=== PATIENT | female | born 1985 | race Caucasian/White ===

== ENCOUNTER 2022-10-28 17:48 | Emergency (ER) | payer BC, SELFPAY ==
[2022-10-28 17:49] VITALS: BP 141/86; PULSE 87; RESP 19; TEMP 36.7; O2SAT 99; BMI 50.1
[2022-10-28 18:21] LABS: UTC Strep Screen (Rapid) Negative (Negative)
--- NOTE | 2022-10-28 18:31 | EXP.UTC ---
Discharge Plan Disposition Patient Disposition: Home, Self-Care Condition: Good Prescriptions Prescriptions: New azithromycin [Zithromax Z-Jose] 250 mg tablet See Rx Instructions .ROUTE .COMPLEX 5 Days Qty: 6 0RF Rx Instructions: For 250 mg dose pack: take 500 mg today (day 1), then 250 mg for 4 days (days 2-5) benzonatate 100 mg capsule 100 mg PO TID PRN (Reason: cough) Qty: 30 0RF Referrals Follow up/Referrals: Yamileth Sargent [Primary Care Provider] - See instructions Activity Restrictions/Add. Instructions Additional Instructions/Restrictions: *Monitor Temp, Over the counter Motrin or Tylenol as directed/as needed Tylenol every 4 hours and Motrin every 6 hours (as long as your family doctor has told you that you can take it) for fever or pain. and straight to ER if unable to lower temp less than 101.0 after medication given *Warm salt water gargles may help to soothe the throat *Throat Lozenges? *Warm fluids like tea with honey may help to soothe the throat? *Sleep elevated *Humidifier/Vaporizer Follow up IMMEDIATELY for new or worsening symptoms or no Noticeable improvement over the next 48-72 hours. 911 for difficulty breathing or swallowing Clinical Impressions Clinical Impression: Sinusitis Qualifiers: Sinusitis location: unspecified location Chronicity: unspecified Qualified Code(s): J32.9 - Chronic sinusitis, unspecified Instructions Patient Instructions: Sinusitis, DI for Sinusitis Discharge ED Provider: Shannen Celestin [facility] General Stated complaint: sore throat, blisters in mouth Mode of Arrival: Ambulatory Source of Information: Patient Limitations: No Limitations Time Seen by Provider: 10/28/22 18:31 Description of Symptoms (Recalled from Triage Doc. by RN): Patient complaint of cough, sore throat, fatigue, no appetite, and dizzy moments x 2 days. HEENT Symptoms (Recalled from RN notes): Yes Resp Symptoms (Recalled from RN notes): No Skin Symptoms (Recalled from RN notes): No MS Symptoms (Recalled from RN notes): No Functional Status (Recalled from RN notes): wnl History of Present Illness Provider Complaint: Patient states that she has been having sinus congestion and pressure for several days States that for the last couple of days she has been having sore throat, blisters on her throat, sinus pressure, drainage in the back of her throat fatigue and loss of appetite States that today she wasnt feeling any better and could barely talk so she came in Related Data Previous Rx's Medication Instructions Recorded azithromycin 250 mg tablet See Rx Instructions PO .COMPLEX 5 10/28/22 (Zithromax Z-Jose) days #6 tabs benzonatate 100 mg capsule 100 mg PO TID PRN cough #30 caps 10/28/22 Allergies Allergy/AdvReac Type Severity Reaction Status Date / Time No Known Allergies Allergy Verified 10/28/22 18:14 Worker's Comp Is this a Worker's Comp case?: No [facility] Disclaimer: The information contained in this section may have been updated after the patient was seen, as this information can be updated by other users. Social History Smoking Status: Unknown if ever smoked alcohol intake: never current occupational status: employed Travel in the last 8 weeks: None ROS Obtained: Yes All systems reviewed & no additional complaints except as documented Constitutional Constitutional: Reports system reviewed and no additional complaints, except as documented, Reports as per HPI, Reports fever(s) and Reports headache(s) ENT Ears, Nose, Mouth, and Throat: Reports system reviewed and no additional complaints, except as documented, Reports as per HPI, Reports headache(s), Reports nasal congestion, Reports sinus pressure and Reports sore throat Cardiovascular Cardiovascular: Reports system reviewed and no additional complaints, except as documented and Reports as per HPI Respiratory Respiratory: Reports system reviewed and no additional com
[2022-10-28 19:10] VITALS: BP 141/86; PULSE 87; RESP 19; TEMP 36.7; O2SAT 99
== END 2022-10-28 19:11 | disposition home or self-care (01) ==
PROVIDERS: Emergency Provider Nurse Practitioner; PCP Family Medicine
DX: J01.90 Acute sinusitis, unspecified (principal); R53.83 Other fatigue; R05.9 Cough, unspecified
CPT/HCPCS: 87880; 96372; 99204; 99212; G0463

== ENCOUNTER 2022-12-22 17:11 | Emergency (ER) | payer BC, SELFPAY ==
[2022-12-22 17:15] VITALS: BP 164/93; PULSE 83; RESP 18; TEMP 36.8; O2SAT 95; BMI 49.7
[2022-12-22 17:34] LABS: Apearance,Urine Clear (Clear); Blood, Urine Negative (Negative); Color,Urine Orange (Yellow); Glucose,Urine (UA) 1+ (Negative); Ketones,Urine Negative (Negative); Protein,Urine 3+ (Negative)
--- NOTE | 2022-12-22 17:34 | EXP.UTC ---
Discharge Plan Disposition Patient Disposition: Home, Self-Care Condition: Good Prescriptions Prescriptions: New phenazopyridine [Pyridium] 200 mg tablet 200 mg PO Q8H 2 Days Qty: 6 0RF ondansetron 4 mg Tablet,Disintegrating 4 mg PO Q8H PRN (Reason: Nausea) Qty: 12 0RF nitrofurantoin monohyd/m-cryst [Macrobid] 100 mg Capsule 100 mg PO BID Qty: 10 0RF Rx Instructions: must administer with a meal/food No Action diltiazem HCl 180 mg capsule,extended release 24hr 180 mg PO DAILY Patient Comments: TAKE ONE (1) CAPSULE BY MOUTH EVERY DAY omeprazole 40 mg capsule,delayed release(DR/EC) 40 mg PO DAILY Patient Comments: TAKE ONE (1) CAPSULE EVERY DAY BY ORAL ROUTE FOR 30 DAYS. meloxicam 7.5 mg tablet 7.5 mg PO BID Patient Comments: TAKE ONE (1) TABLET TWICE A DAY BY ORAL ROUTE FOR 30 DAYS. dextroamphetamine-amphetamine [Adderall XR] 15 mg capsule,extended release 24hr 15 mg PO BID Patient Comments: TAKE ONE (1) CAPSULE TWICE A DAY BY ORAL ROUTE DIRECTED FOR 30 DAYS. duloxetine 60 mg capsule,delayed release(DR/EC) 60 mg PO DAILY Patient Comments: TAKE ONE (1) CAPSULE EVERY DAY BY ORAL ROUTE AT BEDTIME FOR 90 DAYS. Mounjaro 2.5 mg/0.5 mL pen injector See Rx Instructions .ROUTE .COMPLEX Patient Comments: INJECT TWO AND A HALF (2 & 1/2) MG WEEKLY Rx Instructions: INJECT TWO AND A HALF (2 & 1/2) MG WEEKLY Referrals Follow up/Referrals: Yamileth Sargent [Primary Care Provider] - See instructions Activity Restrictions/Add. Instructions Additional Instructions/Restrictions: Drink plenty of fluids. Take tylenol or ibuprofen for pain or fever. Take the medications as directed. Follow up with your regular doctor. GO TO THE ER FOR ANY WORSENING SYMPTOMS The pyridium will make your urine turn orange, this is an expected side effect. It will stain your clothes if it comes into contact with them. We will culture the urine. That will tell what bacteria is causing your infection and which antibiotics will treat it best. Sometimes the first antibiotic we prescribe turns out to not work against different bacteria. So, make sure you follow up within 3 days if you are not getting better. Clinical Impressions Clinical Impression: UTI (urinary tract infection) Stand Alone Forms Stand Alone Forms: Work/School Release Instructions Patient Instructions: DI for Urinary Tract Infection (UTI), Urine Culture, Phenazopyridine Discharge ED Provider: Douglas De La Cruz [facility] [place] HPI General Stated complaint: painful urination Mode of Arrival: Ambulatory Source of Information: Patient Limitations: No Limitations Time Seen by Provider: 12/22/22 17:34 Description of Symptoms (Recalled from Triage Doc. by RN): painful to urinate, sharp cramps in lower abdomen, nausea, and no appetite HEENT Symptoms (Recalled from RN notes): No Resp Symptoms (Recalled from RN notes): No Skin Symptoms (Recalled from RN notes): No MS Symptoms (Recalled from RN notes): No Functional Status (Recalled from RN notes): n/a History of Present Illness Provider Complaint: She states that she has had dysuria, low back pain, and urinary frequency. Related Data Home Medications Medication Instructions Recorded Confirmed dextroamphetamine-amphetamine ER 15 mg PO BID adhd 12/22/22 12/22/22 15 mg 24hr capsule,extend release (Adderall XR) diltiazem HCl 180 mg 180 mg PO DAILY 12/22/22 12/22/22 capsule,extended release 24 hr duloxetine 60 mg capsule,delayed 60 mg PO DAILY 12/22/22 12/22/22 release meloxicam 7.5 mg tablet 7.5 mg PO BID 12/22/22 12/22/22 omeprazole 40 mg capsule,delayed 40 mg PO DAILY 12/22/22 12/22/22 release tirzepatide 2.5 mg/0.5 mL See Rx Instructions .Route .COMPLEX 12/22/22 12/22/22 subcutaneous pen injector (Jose Maria) Previous Rx's Medication Instructions Recorded nitrofurantoin 100 mg PO BID #10 caps
[2022-12-22 17:35] LABS: Bilirubin,Urine 1+ (Negative); UTC Leukocyte Esterase,Urine Negative (Negative); UTC Nitrate,Urine Positive (Negative); Urobilinogen,Urine 1 EU/dl (0.2)
[2022-12-22 18:11] VITALS: BP 164/93; PULSE 83; RESP 18; TEMP 36.8; O2SAT 95
== END 2022-12-22 18:10 | disposition home or self-care (01) ==
PROVIDERS: Emergency Provider Nurse Practitioner Family; PCP Family Medicine
DX: N39.0 Urinary tract infection, site not specified (principal); M54.59 Other low back pain; R11.0 Nausea
CPT/HCPCS: 81003; 87086; 99212; 99214; G0463

== ENCOUNTER 2023-01-23 14:18 | Emergency (ER) | payer BC, SELFPAY ==
[2023-01-23 14:18] VITALS: BP 121/84; PULSE 75; RESP 18; O2SAT 100; BMI 49.7
--- NOTE | 2023-01-23 15:46 | PC.NURSE ---
Pt ambulatory to bathroom and back to bed
--- NOTE | 2023-01-23 15:48 | HMH.EDGENADL ---
Discharge Plan Disposition Patient Disposition: Home, Self-Care Prescriptions Prescriptions: No Action diltiazem HCl 180 mg capsule,extended release 24hr 180 mg PO DAILY Patient Comments: TAKE ONE (1) CAPSULE BY MOUTH EVERY DAY omeprazole 40 mg capsule,delayed release(DR/EC) 40 mg PO DAILY Patient Comments: TAKE ONE (1) CAPSULE EVERY DAY BY ORAL ROUTE FOR 30 DAYS. meloxicam 7.5 mg tablet 7.5 mg PO BID Patient Comments: TAKE ONE (1) TABLET TWICE A DAY BY ORAL ROUTE FOR 30 DAYS. dextroamphetamine-amphetamine [Adderall XR] 15 mg capsule,extended release 24hr 15 mg PO BID Patient Comments: TAKE ONE (1) CAPSULE TWICE A DAY BY ORAL ROUTE DIRECTED FOR 30 DAYS. duloxetine 60 mg capsule,delayed release(DR/EC) 60 mg PO DAILY Patient Comments: TAKE ONE (1) CAPSULE EVERY DAY BY ORAL ROUTE AT BEDTIME FOR 90 DAYS. Mounjaro 2.5 mg/0.5 mL pen injector See Rx Instructions .ROUTE .COMPLEX Patient Comments: INJECT TWO AND A HALF (2 & 1/2) MG WEEKLY Rx Instructions: INJECT TWO AND A HALF (2 & 1/2) MG WEEKLY phenazopyridine [Pyridium] 200 mg tablet 200 mg PO Q8H 2 Days Qty: 6 0RF ondansetron 4 mg Tablet,Disintegrating 4 mg PO Q8H PRN (Reason: Nausea) Qty: 12 0RF nitrofurantoin monohyd/m-cryst [Macrobid] 100 mg Capsule 100 mg PO BID Qty: 10 0RF Rx Instructions: must administer with a meal/food Referrals Follow up/Referrals: Yamileth Sargent [Primary Care Provider] - See instructions Activity Restrictions/Add. Instructions Additional Instructions/Restrictions: Please follow-up with your primary care provider. Please return to the emergency department if you develop any new or worsening symptoms or become concerned for your health. Clinical Impressions Clinical Impression: Migraine Qualifiers: Migraine type: unspecified Intractability: not intractable Discharge ED Provider: Abdoul King Adult HPI General Chief complaint: Headache Stated complaint: JARQUIN Time Seen by Provider: 01/23/23 15:00 Mode of Arrival: EMS Source of Information: Patient and EMS Limitations: No Limitations Description of Symptoms (Recalled from ER Triage Doc. by RN): c/o sweating, dizzy, headache, light sensitivity, nausea that occurred prior to arrival, hx of migraine and states that this feels similiar. Jose Maria shot started one month ago, takes this shot once a week with this week shot taken today. Pt states that she usually drinks caffeine daily, she did have some coffee this morning but not her usual intake. History of Present Illness HPI narrative: 37-year-old female, history of chronic migraines presents with migraine headache. She reports headache started this morning, worsened throughout the day. Shortly prior to arrival she became dizzy and started sweating. She reports her symptoms are consistent with prior migraines including frontal headache, blurry vision, photo and phonophobia. Related Data Home Medications Medication Instructions Recorded Confirmed dextroamphetamine-amphetamine ER 15 mg PO BID adhd 12/22/22 12/22/22 15 mg 24hr capsule,extend release (Adderall XR) diltiazem HCl 180 mg 180 mg PO DAILY 12/22/22 12/22/22 capsule,extended release 24 hr duloxetine 60 mg capsule,delayed 60 mg PO DAILY 12/22/22 12/22/22 release meloxicam 7.5 mg tablet 7.5 mg PO BID 12/22/22 12/22/22 omeprazole 40 mg capsule,delayed 40 mg PO DAILY 12/22/22 12/22/22 release tirzepatide 2.5 mg/0.5 mL See Rx Instructions .Route .COMPLEX 12/22/22 12/22/22 subcutaneous pen injector (Mounjaro) Previous Rx's Medication Instructions Recorded nitrofurantoin 100 mg PO BID #10 caps 12/22/22 monohydrate/macrocrystals 100 mg capsule (Macrobid) ondansetron 4 mg disintegrating 4 mg PO Q8H PRN Nausea #12 tabs 12/22/22 tablet phenazopyridine 200 mg tablet 200 mg PO Q8H 2 days #6 tabs 12/22/22 (Pyridium) Allergies Allergy
--- NOTE | 2023-01-23 17:41 | PC.NURSE ---
Pt advised she is feeling so much better Dr. King updated
[2023-01-23 17:45] VITALS: BP 144/88; PULSE 72; RESP 18; TEMP 36.7; O2SAT 97
[2023-01-23 17:46] VITALS: BP 110/72; PULSE 68; RESP 16; TEMP 36.7; O2SAT 98
== END 2023-01-23 17:45 | disposition home or self-care (01) ==
PROVIDERS: Emergency Provider Emergency Medicine; PCP Family Medicine
DX: G43.909 Migraine, unspecified, not intractable, without status migrainosus (principal); R42 Dizziness and giddiness; H53.8 Other visual disturbances; R11.0 Nausea
CPT/HCPCS: 96361; 96374; 96375; 99284

== ENCOUNTER 2023-02-16 17:31 | Emergency (ER) | payer BC, SELFPAY ==
[2023-02-16 18:10] VITALS: BP 159/89; PULSE 87; RESP 18; TEMP 36.8; O2SAT 97; BMI 50.8
--- NOTE | 2023-02-16 18:32 | ED_ITS ---
Discharge Plan Disposition Patient Disposition: Home, Self-Care Condition: Good Prescriptions Prescriptions: New benzonatate [benzonatate] 100 mg capsule 100 mg PO TIDP PRN (Reason: Cough) Qty: 30 0RF methylprednisolone 4 mg Tablets,Dose Pack 4 mg PO DIRECTED 6 Days Qty: 21 0RF Rx Instructions: Take 1 pack as directed for 6 days amoxicillin-pot clavulanate 875-125 mg Tablet 1 tab PO Q12H Qty: 20 0RF No Action diltiazem HCl 180 mg capsule,extended release 24hr 180 mg PO DAILY Patient Comments: TAKE ONE (1) CAPSULE BY MOUTH EVERY DAY omeprazole 40 mg capsule,delayed release(DR/EC) 40 mg PO DAILY Patient Comments: TAKE ONE (1) CAPSULE EVERY DAY BY ORAL ROUTE FOR 30 DAYS. meloxicam 7.5 mg tablet 7.5 mg PO BID Patient Comments: TAKE ONE (1) TABLET TWICE A DAY BY ORAL ROUTE FOR 30 DAYS. dextroamphetamine-amphetamine [Adderall XR] 15 mg capsule,extended release 24hr 15 mg PO BID Patient Comments: TAKE ONE (1) CAPSULE TWICE A DAY BY ORAL ROUTE DIRECTED FOR 30 DAYS. duloxetine 60 mg capsule,delayed release(DR/EC) 60 mg PO DAILY Patient Comments: TAKE ONE (1) CAPSULE EVERY DAY BY ORAL ROUTE AT BEDTIME FOR 90 DAYS. Mounjaro 2.5 mg/0.5 mL pen injector See Rx Instructions .ROUTE .COMPLEX Patient Comments: INJECT TWO AND A HALF (2 & 1/2) MG WEEKLY Rx Instructions: INJECT TWO AND A HALF (2 & 1/2) MG WEEKLY ondansetron 4 mg Tablet,Disintegrating 4 mg PO Q8H PRN (Reason: Nausea) Qty: 12 0RF nitrofurantoin monohyd/m-cryst [Macrobid] 100 mg Capsule 100 mg PO BID Qty: 10 0RF Rx Instructions: must administer with a meal/food Referrals Follow up/Referrals: Yamileth Sargent [Primary Care Provider] - See instructions Activity Restrictions/Add. Instructions Additional Instructions/Restrictions: Drink plenty of fluids. Take tylenol or ibuprofen for pain or fever. Take the medications as directed. Follow up with your regular doctor. GO TO THE ER FOR ANY WORSENING SYMPTOMS Clinical Impressions Clinical Impression: Pharyngitis, Sinusitis, Acute bronchitis Stand Alone Forms Stand Alone Forms: Work/School Release Instructions Patient Instructions: DI for Pharyngitis/Tonsillopharyngitis -- Adult, DI for Acute Bronchitis, Dexamethasone Injection Discharge ED Provider: Douglas De La Cruz [facility] [facility] [place] General Stated complaint: cough, sore throat, Time Seen by Provider: 02/16/23 18:32 History of Present Illness Provider Complaint: She states that she has had a sore throat, cough and sinus congestion for the past 2 weeks. She states that her symptoms are getting worse. Related Data Home Medications Medication Instructions Recorded Confirmed dextroamphetamine-amphetamine ER 15 mg PO BID adhd 12/22/22 12/22/22 15 mg 24hr capsule,extend release (Adderall XR) diltiazem HCl 180 mg 180 mg PO DAILY 12/22/22 12/22/22 capsule,extended release 24 hr duloxetine 60 mg capsule,delayed 60 mg PO DAILY 12/22/22 12/22/22 release meloxicam 7.5 mg tablet 7.5 mg PO BID 12/22/22 12/22/22 omeprazole 40 mg capsule,delayed 40 mg PO DAILY 12/22/22 12/22/22 release tirzepatide 2.5 mg/0.5 mL See Rx Instructions .Route .COMPLEX 12/22/22 12/22/22 subcutaneous pen injector (Jose Maria) Previous Rx's Medication Instructions Recorded nitrofurantoin 100 mg PO BID #10 caps 12/22/22 monohydrate/macrocrystals 100 mg capsule (Macrobid) ondansetron 4 mg disintegrating 4 mg PO Q8H PRN Nausea #12 tabs 12/22/22 tablet amoxicillin 875 mg-potassium 1 tab PO Q12H #20 tabs 02/16/23 clavulanate 125 mg tablet benzonatate 100 mg capsule 100 mg PO TIDP PRN Cough #30 caps 02/16/23 methylprednisolone 4 mg tablets in 4 mg PO DIRECTED 6 days #21 tabs 02/16/23 a dose pack Allergies Allergy/AdvReac Type Severity Reaction Status Date / Time No Known Allergies Allergy Verified 02/16/23 18:38 [facility] Disclaimer: The information contained in this section may have been updated after the pat ient was seen, as this information can be updated by other users. Social History Smoking Status: Never smoker alcohol intake: never current occupational status: employed Travel in the last 8 weeks: None ROS Obtained: Yes All systems reviewed & no additional complaints except as documented Constitutional Constitutional: Reports as per HPI, Reports chills and Denies fever(s) Eyes Eyes: Denies eye discharge ENT Ears, Nose, Mouth, and Throat: Reports as per HPI Cardiovascular Cardiovascular: Denies chest pain Respiratory Respiratory: Denies chest congestion and Reports cough Gastrointestinal Gastrointestingal: Reports nausea; Denies abdominal pain, constipation, cramping, diarrhea or vomiting Musculoskeletal Musculoskeletal: Denies arthralgias Integumentary/Breasts Skin/Breast: Denies rash Neurologic Neurologic: Denies paresthesias Physical Exam General General appearance: alert and in no apparent distress Head Head exam: atraumatic, normocephalic and normal inspection Eye Eye exam: Present normal appearance, PERRL and EOMI ENT ENT exam: Present mucous membranes moist and normal external ear exam Expanded ENT Exam TM/Canal exam: Bilateral TM: erythema and bulging Nose exam: Absent sinus tenderness Mouth exam: Present normal external inspection; Absent drooling Teeth exam: Present normal inspection Throat exam: Present tonsillar erythema, tonsillomegaly and tonsillar exudate Neck Neck exam: Present normal inspection, full ROM and trachea midline; Absent te nderness, meningismus or lymphadenopathy Chest Chest inspection: Present normal inspection and symmetric chest wall rise; Absent tenderness Respiratory Respiratory exam: Present normal lung sounds bilaterally; Absent respiratory distress, wheezes or stridor Cardiovascular Cardiovascular exam: Present regular rate and normal rhythm; Absent systolic murmur or diastolic murmur Abdominal Exam Abdominal exam: Present soft and normal bowel sounds; Absent distention, tenderness, guarding, rebound or rigidity Extremities Exam Extremities exam: Present normal inspection and normal capillary refill; Absent calf tenderness Back Exam Back exam: Present normal inspection and full ROM; Absent tenderness, CVA te nderness (R) or CVA tenderness (L) Neurological Exam Neurological exam: Present alert, oriented X3 and CN II-XII intact Psychiatric Psychiatric exam: Present normal affect and normal mood Skin Skin exam: Present warm, dry, intact and normal color Medical Decision Making Medical Records Medical records reviewed: No I reviewed the patient's medical records. Deep Inquiry Pt receiving controlled substance: No Lab Data Lab results reviewed: Yes I reviewed the patient's lab results.
[2023-02-16 18:45] LABS: UTC Strep Screen (Rapid) Negative (Negative)
[2023-02-16] MEDS: DEXAMETHASONE 4MG/ML 1ML VIAL 8 MG IM (18:56)
[2023-02-16 19:10] VITALS: BP 159/89; PULSE 87; RESP 18; TEMP 36.8; O2SAT 97
== END 2023-02-16 19:10 | disposition home or self-care (01) ==
PROVIDERS: Emergency Provider Nurse Practitioner Family; PCP Family Medicine
DX: J20.9 Acute bronchitis, unspecified (principal); J02.9 Acute pharyngitis, unspecified; J01.90 Acute sinusitis, unspecified
CPT/HCPCS: 87880; 96372; 99212; 99214; G0463

== ENCOUNTER 2023-03-01 18:28 | Emergency (ER) | payer BC, SELFPAY ==
--- NOTE | 2023-03-01 18:35 | XR_ITS ---
PROCEDURE INFORMATION: Exam: XR Left Hand Exam date and time: 03/01/2023 6:41 PM Age: 37 years old Clinical indication: Finger(s); Left; Patient HX: C/O thumb pain distal phalanx; Additional info: Hit hand on counter TECHNIQUE: Imaging protocol: Radiologic exam of the left hand. Views: 3 or more views. COMPARISON: No relevant prior studies available. FINDINGS: Bones/joints: No acute fracture or malalignment. Soft tissues: Normal. IMPRESSION: No acute osseous findings.
[2023-03-01 19:15] VITALS: BP 119/84; PULSE 94; RESP 17; TEMP 37.1; O2SAT 98; BMI 46.1
--- NOTE | 2023-03-01 19:36 | EXP.UTC ---
Discharge Plan Disposition Patient Disposition: Home, Self-Care Condition: Good Prescriptions Prescriptions: New cephalexin 500 mg capsule 500 mg PO QID Qty: 40 0RF mupirocin 2 % ointment 1 applic topical TID 7 Days Qty: 15 0RF No Action benzonatate [benzonatate] 100 mg capsule 100 mg PO TIDP PRN (Reason: Cough) Qty: 30 0RF methylprednisolone 4 mg Tablets,Dose Pack 4 mg PO DIRECTED 6 Days Qty: 21 0RF Rx Instructions: Take 1 pack as directed for 6 days amoxicillin-pot clavulanate 875-125 mg Tablet 1 tab PO Q12H Qty: 20 0RF albuterol sulfate [Ventolin HFA] 90 mcg/actuation HFA aerosol inhaler 2 puff inhalation Q6H PRN (Reason: shortness of breath or wheezing) Qty: 6.7 0RF diltiazem HCl 180 mg capsule,extended release 24hr 180 mg PO DAILY Patient Comments: TAKE ONE (1) CAPSULE BY MOUTH EVERY DAY omeprazole 40 mg capsule,delayed release(DR/EC) 40 mg PO DAILY Patient Comments: TAKE ONE (1) CAPSULE EVERY DAY BY ORAL ROUTE FOR 30 DAYS. meloxicam 7.5 mg tablet 7.5 mg PO BID Patient Comments: TAKE ONE (1) TABLET TWICE A DAY BY ORAL ROUTE FOR 30 DAYS. dextroamphetamine-amphetamine [Adderall XR] 15 mg capsule,extended release 24hr 15 mg PO BID Patient Comments: TAKE ONE (1) CAPSULE TWICE A DAY BY ORAL ROUTE DIRECTED FOR 30 DAYS. duloxetine 60 mg capsule,delayed release(DR/EC) 60 mg PO DAILY Patient Comments: TAKE ONE (1) CAPSULE EVERY DAY BY ORAL ROUTE AT BEDTIME FOR 90 DAYS. Mounjaro 2.5 mg/0.5 mL pen injector See Rx Instructions .ROUTE .COMPLEX Patient Comments: INJECT TWO AND A HALF (2 & 1/2) MG WEEKLY Rx Instructions: INJECT TWO AND A HALF (2 & 1/2) MG WEEKLY ondansetron 4 mg Tablet,Disintegrating 4 mg PO Q8H PRN (Reason: Nausea) Qty: 12 0RF nitrofurantoin monohyd/m-cryst [Macrobid] 100 mg Capsule 100 mg PO BID Qty: 10 0RF Rx Instructions: must administer with a meal/food Referrals Follow up/Referrals: Yamileth Sargent [Primary Care Provider] - See instructions Activity Restrictions/Add. Instructions Additional Instructions/Restrictions: Rest the extremity, Elevate the extremity as tolerated while you are resting. Take the medication as directed and apply the topical antibiotic ointment as directed. Follow up with your regular doctor. GO TO THE ER FOR ANY WORSENING SYMPTOMS Clinical Impressions Clinical Impression: Open wound of left thumb with damage to nail, Cellulitis of left thumb Instructions Patient Instructions: Cellulitis, DI for Nail Bed Injury Discharge ED Provider: Douglas De La Cruz [facility] [place] General Stated complaint: AO01/ LT thumb inj Time Seen by Provider: 03/01/23 19:36 History of Present Illness Provider Complaint: She states that around 1 week ago she accidentally got her left thumb nail hung on the edge of a table. This caused her to get an injury to the nail base. She states that since then she has had redness and drainage from the base of the nail. She denies any other injury. Related Data Home Medications Medication Instructions Recorded Confirmed dextroamphetamine-amphetamine ER 15 mg PO BID adhd 12/22/22 12/22/22 15 mg 24hr capsule,extend release (Adderall XR) diltiazem HCl 180 mg 180 mg PO DAILY 12/22/22 12/22/22 capsule,extended release 24 hr duloxetine 60 mg capsule,delayed 60 mg PO DAILY 12/22/22 12/22/22 release meloxicam 7.5 mg tablet 7.5 mg PO BID 12/22/22 12/22/22 omeprazole 40 mg capsule,delayed 40 mg PO DAILY 12/22/22 12/22/22 release tirzepatide 2.5 mg/0.5 mL See Rx Instructions .Route .COMPLEX 12/22/22 12/22/22 subcutaneous pen injector (Jose Maria) Previous Rx's Medication Instructions Recorded nitrofurantoin 100 mg PO BID #10 caps 12/22/22 monohydrate/macrocrystals 100 mg capsule (Macrobid) ondansetron 4 mg disintegrating 4 mg PO Q8H PRN Nausea #12 tabs 12/22/22 tablet albuterol sulfate 90 mcg/actuation 2 puff inhalation Q6H PRN 02/16/23 aerosol inhaler (Ventolin HFA) shortness of breath or wheezing #6.7 grams amoxicillin 875 mg-potassium 1 tab PO Q12H #20 tabs 02/16/23 clavulanate 125 mg tablet benzonatate 100 mg capsule 100 mg PO TIDP PRN Cough #30 caps 02/16/23 methylprednisolone 4 mg tablets in 4 mg PO DIRECTED 6 days #21 tabs 02/16/23 a dose pack cephalexin 500 mg capsule 500 mg PO QID #40 caps 03/01/23 mupirocin 2 % topical ointment 1 applic topical TID 7 days #15 03/01/23 grams Allergies Allergy/AdvReac Type Severity Reaction Status Date / Time No Known Allergies Allergy Verified 03/01/23 20:03 [facility] Disclaimer: The information contained in this section may have been updated after the patient was seen, as this information can be updated by other users. Social History Smoking Status: Never smoker alcohol intake: never current occupational status: employed Travel in the last 8 weeks: None ROS Obtained: Yes All systems reviewed & no additional complaints except as documented Constitutional Constitutional: Denies chills and Denies fever(s) Eyes Eyes: Denies eye discharge ENT Ears, Nose, Mouth, and Throat: Denies dizziness, Denies otalgia and Denies sore throat Cardiovascular Cardiovascular: Denies chest pain Respiratory Respiratory: Denies shortness of breath, Denies chest congestion, Denies cough, Denies stridor and Denies wheezing Gastrointestinal Gastrointestingal: Denies nausea or vomiting Musculoskeletal Musculoskeletal: Reports system reviewed and no additional complaints, except as documented and Denies arthralgias Integumentary/Breasts Skin/Breast: Reports as per HPI Neurologic Neurologic: Denies dizziness and Denies paresthesias Allergic/Immunologic Allergic/Immunologic: Denies wheezing Physical Exam General General appearance: alert and in no apparent distress Head Head exam: atraumatic, normocephalic and normal inspection Eye Eye exam: Present normal appearance, PERRL and EOMI ENT ENT exam: Present normal exam, normal oropharynx, mucous membranes moist, TM's normal bilaterally and normal external ear exam Neck Neck exam: Present normal inspection, full ROM and trachea midline; Absent meningismus or lymphadenopathy Chest Chest inspection: Present normal inspection and symmetric chest wall rise; Absent tenderness Respiratory Respiratory exam: Present normal lung sounds bilaterally; Absent respiratory distress Cardiovascular Cardiovascular exam: Present regular rate and normal rhythm; Absent JVD Abdominal Exam Abdominal exam: Present soft and normal bowel sounds; Absent distention, tenderness or guarding Extremities Exam Extremities exam: Present normal inspection, full ROM and normal capillary refill; Absent calf tenderness Back Exam Back exam: Present normal inspection; Absent tenderness Neurological Exam Neurological exam: Present alert and oriented X3 Psychiatric Psychiatric exam: Present normal affect and normal mood Skin Skin exam: Present erythema (there is redness around the base of her left thumb nail. ) Lymphatic Lymphatic Findings: no adenopathy Medical Decision Making Medical Records Medical records reviewed: No I reviewed the patient's medical records. Deep Inquiry Pt receiving controlled substance: No Orders (Tests/Meds): ORDERS Category Date Time Status XR hand LT min 3V Stat Exams 03/01/23 18:35 Completed Radiology Data #1: Image(s): Hand Image Reviewed: Yes I reviewed the patient's radiology image and Yes I have reviewed radiologist's interpretation Preliminary Findings: Normal/NAD and No Fracture Seen PROCEDURE INFORMATION: Exam: XR Left Hand Exam date and time: 03/01/2023 6:41 PM Age: 37 years old Clinical indication: Finger(s); Left; Patient HX: C/O thumb pain distal phalanx; Additional info: Hit hand on counter TECHNIQUE: Imaging protocol: Radiologic exam of the left hand. Views: 3 or more views. COMPARISON: No relevant prior studies available. FINDINGS: Bones/joints: No acute fracture or malalignment. Soft tissues: Normal. IMPRESSION: No acute osseous findings. Procedures Risk/Benefits of Procedure(s) Were Explained: Yes Orthopedic Splinting/Casting Injury #1: Side: left Upper Extremity Injury Location: thumb Upper Extremity Immobilizer: aluminum form splint and applied by nurse/dr tim Post Cast/Splinting Neuro Status: intact and no change Post Cast/Splinting Vasc Status: intact and no change
[2023-03-01 20:05] VITALS: BP 119/84; PULSE 94; RESP 17; TEMP 37.1; O2SAT 98
== END 2023-03-01 20:05 | disposition home or self-care (01) ==
PROVIDERS: Emergency Provider Nurse Practitioner Family; PCP Family Medicine
DX: S61.102A Unspecified open wound of left thumb with damage to nail, initial encounter (principal); L03.012 Cellulitis of left finger; W23.2XXA Caught, crushed, jammed or pinched between a moving and stationary object, initial encounter
CPT/HCPCS: 73130; 99212; 99214; G0463

== ENCOUNTER 2024-04-04 18:37 | Outpatient (CLI) | payer BC, SELFPAY ==
--- NOTE | 2024-04-04 18:53 | XR_ITS ---
PROCEDURE INFORMATION: Exam: XR Left Wrist Exam date and time: 04/04/2024 6:50 PM Age: 38 years old Clinical indication: Pain; Wrist; Left; Additional info: Pain from fall TECHNIQUE: Imaging protocol: Radiologic exam of the left wrist. Views: 3 or more views. COMPARISON: CR XR HAND LT MIN 3V 04/04/2024 6:47 PM FINDINGS: Bones/joints: Normal anatomic alignment. The bone density is normal for this patient's age. Displaced linear osseous fragment at the base of the 5th metacarpal with surrounding linear lucencies. No other acutely displaced skeletal fractures. No joint dislocation. No aggressive osseous lesions. Soft tissues: There is soft tissue swelling. IMPRESSION: Displaced linear osseous fragment at the base of the 5th metacarpal with surrounding linear lucencies. Very concerning for a fracture.
--- NOTE | 2024-04-04 18:53 | XR_ITS ---
PROCEDURE INFORMATION: Exam: XR Left Hand Exam date and time: 04/04/2024 6:47 PM Age: 38 years old Clinical indication: Pain; Hand; Left TECHNIQUE: Imaging protocol: Radiologic exam of the left hand. Views: 3 or more views. COMPARISON: CR XR HAND LT MIN 3V 03/01/2023 6:41 PM FINDINGS: Bones/joints: Displaced linear osseous fragment at the base of the 5th metacarpal with surrounding linear lucencies. No other acutely displaced skeletal fractures. No joint dislocation. No aggressive osseous lesions. Soft tissues: There is soft tissue swelling. IMPRESSION: Displaced linear osseous fragment at the base of the 5th metacarpal with surrounding linear lucencies. Very concerning for a fracture. Consider correlation with noncontrast CT.
== END 2024-04-04 23:59 | disposition home or self-care (01) ==
PROVIDERS: Visit Provider Nurse Practitioner
DX: M79.642 Pain in left hand (principal)
CPT/HCPCS: 73110; 73130